=== PATIENT | male | born 1995 | race Two or more races ===

== ENCOUNTER 2020-04-14 20:11 | Emergency (ER) | payer SELFPAY ==
[2020-04-14] MEDS ORDERED: FLU VACC QS2020-21(6MOS UP)/PF 60 MCG/0.5 ML SYRINGE IM ONE (21:00)
--- NOTE | 2020-04-14 21:46 | EDM.PDOC ---
ED HPI GENERAL MEDICAL PROBLEM - General Chief Complaint: Chest Pain Stated Complaint: CHEST PAIN Time Seen by Provider: 04/14/20 20:25 Source of Information: Reports: Patient, RN Notes Reviewed History Limitations: Reports: No Limitations - History of Present Illness INITIAL COMMENTS - FREE TEXT/NARRATIVE: Patient is a 25-year-old male presenting to the emergency department with complaints of intermittent left-sided chest pain that began last evening. He describes it as a pinching sensation in his left chest wall. Symptoms are not present at this time. When he woke this morning, the pain was fairly constant, however it has improved throughout the day and now only occurs if he takes a very deep breath or uses his muscles to sit up. He also has some discomfort when bending over. Chest wall is not tender to palpation. He has been doing some housework, but nothing overly exertional. Denies any heavy lifting. He has no history of cardiac problems, however he does have a history of polycythemia as well as a "blood clot in his right lung". He is not sure what medication was used to treat this blood clot, however he states that he took it for 1 week. States he did have phlebotomy for his polycythemia in January. He denies any shortness of breath, diaphoresis, nausea, or vomiting associated with chest pain. Left Chest Pain Score (Numeric/FACES): 7 - Related Data Allergies Allergy/AdvReac Type Severity Reaction Status Date / Time No Known Allergies Allergy Verified 04/14/20 20:28 Home Meds: Home Meds diphenhydrAMINE [Benadryl] 50 mg PO ASDIRECTED PRN 04/14/20 [History] Past Medical History Hematologic History: Reports: Polycythemia Social & Family History - Tobacco Use Tobacco Use Status *Q: Former Tobacco User Used Tobacco, but Quit: Yes Month/Year Tobacco Last Used: 3 months - Caffeine Use Caffeine Use: Reports: Soda - Recreational Drug Use Recreational Drug Type: Reports: Marijuana/Hashish Recreational Drug Use Frequency: Weekly ED ROS GENERAL - Review of Systems Review Of Systems: See Below Constitutional: Reports: No Symptoms, Weight Gain. Denies: Fever, Chills Respiratory: Reports: No Symptoms. Denies: Shortness of Breath, Cough Cardiovascular: Reports: Chest Pain. Denies: Dyspnea on Exertion, Lightheadedness, Palpitations Endocrine: Reports: No Symptoms GI/Abdominal: Reports: No Symptoms : Reports: No Symptoms Musculoskeletal: Reports: No Symptoms Skin: Reports: No Symptoms Neurological: Reports: No Symptoms Psychiatric: Reports: No Symptoms Hematologic/Lymphatic: Reports: No Symptoms Immunologic: Reports: No Symptoms ED EXAM, GENERAL - Physical Exam Exam: See Below Exam Limited By: No Limitations General Appearance: Alert, WD/WN, No Apparent Distress Respiratory/Chest: No Respiratory Distress, Lungs Clear, Normal Breath Sounds, No Accessory Muscle Use, Chest Non-Tender Cardiovascular: Normal Peripheral Pulses, Regular Rate, Rhythm, No Edema, No Gallop, No JVD, No Murmur, No Rub GI/Abdominal: Normal Bowel Sounds, Soft, Non-Tender, No Organomegaly, No Distention, No Abnormal Bruit, No Mass Neurological: Alert, Oriented, CN II-XII Intact, Normal Cognition, Normal Gait, Normal Reflexes, No Motor/Sensory Deficits Psychiatric: Normal Affect, Normal Mood Skin Exam: Warm, Dry, Intact, Normal Color, No Rash #1 Interpretation EKG Date: 04/14/20 Time: 20:39 Rhythm: NSR Rate (Beats/Min): 81 [place]: Normal P-Wave: Present QRS: Normal ST-T: Elevated (probable normal early repolarization pattern.) QT: Normal Course - Vital Signs Last Recorded V/S: Last Vital Signs Temp 98.0 F 04/14/20 20:35 Pulse 83 04/14/20 20:35 Resp 20 04/14/20 20:35 BP 132/89 04/14/20 20:35 Pulse Ox 97 04/14/20 20:35 - Orders/Labs/Meds Orders: Active Orders 24 hr Category Date Time Status Chest 2V [CR] Stat Exams 04/14/20 20:29 Taken Labs: Laboratory Tests 04/14/20 04/14/20 04/14/20 Range/Units 20:43 20:43 20:43 WBC 9.15 H (4.23-9.07) K/mm3 RBC 5.27 (4.63-6.08) M/mm3 Hgb 14.8 (13.7-17.5) gm/dl Hct 45.6 (40.1-51.0) % MCV 86.5 (79.0-92.2) fl MCH 28.1 (25.7-32.2) pg MCHC 32.5 (32.2-35.5) g/dl RDW Std Deviation 44.4 H (35.1-43.9) fL Plt Count 316 (163-337) K/mm3 MPV 10.2 (9.4-12.3) fl Neutrophils % (Manual) 66 H (40-60) % Band Neutrophils % 0 (0-10) % Lymphocytes % (Manual) 27 (20-40) % Atypical Lymphs % 0 % Monocytes % (Manual) 3 (2-10) % Eosinophils % (Manual) 4 (0.8-7.0) % Basophils % (Manual) 0 L (0.2-1.2) Platelet Estimate Adequate RBC Morph Comment Normal PT 11.1 (9.7-12.0) SECONDS INR 1.04 APTT 30.8 (21.7-31.4) SECONDS D-Dimer, Quantitative < 0.19 L (0.19-0.50) mg/L Sodium 139 (136-145) mEq/L Potassium 3.7 (3.5-5.1) mEq/L Chloride 102 (98-107) mEq/L Carbon Dioxide 28 (21-32) mEq/L Anion Gap 12.7 (5-15) BUN 6 L (7-18) mg/dL Creatinine 0.8 (0.7-1.3) mg/dL Est Cr Clr Drug Dosing 162.69 mL/min Estimated GFR (MDRD) > 60 (>60) mL/min BUN/Creatinine Ratio 7.5 L (14-18) Glucose 101 (74-106) mg/dL Calcium 9.0 (8.5-10.1) mg/dL Magnesium 1.7 L (1.8-2.4) mg/dl Total Bilirubin 0.7 (0.2-1.0) mg/dL AST 22 (15-37) U/L ALT 52 (16-63) U/L Alkaline Phosphatase 88 (46-116) U/L Troponin I < 0.017 (0.00-0.056) ng/mL NT-Pro-B Natriuret Pep (0-125) pg/mL Total Protein 7.5 (6.4-8.2) g/dl Albumin 3.5 (3.4-5.0) g/dl Globulin 4.0 gm/dL Albumin/Globulin Ratio 0.9 L (1-2) 04/14/20 Range/Units 20:43 WBC (4.23-9.07) K/mm3 RBC (4.63-6.08) M/mm3 Hgb (13.7-17.5) gm/dl Hct (40.1-51.0) % MCV (79.0-92.2) fl MCH (25.7-32.2) pg MCHC (32.2-35.5) g/dl RDW Std Deviation (35.1-43.9) fL Plt Count (163-337) K/mm3 MPV (9.4-12.3) fl Neutrophils % (Manual) (40-60) % Band Neutrophils % (0-10) % Lymphocytes % (Manual) (20-40) % Atypical Lymphs % % Monocytes % (Manual) (2-10) % Eosinophils % (Manual) (0.8-7.0) % Basophils % (Manual) (0.2-1.2) Platelet Estimate RBC Morph Comment PT (9.7-12.0) SECONDS INR APTT (21.7-31.4) SECONDS D-Dimer, Quantitative (0.19-0.50) mg/L Sodium (136-145) mEq/L Potassium (3.5-5.1) mEq/L Chloride (98-107) mEq/L Carbon Dioxide (21-32) mEq/L Anion Gap (5-15) BUN (7-18) mg/dL Creatinine (0.7-1.3) mg/dL Est Cr Clr Drug Dosing mL/min Estimated GFR (MDRD) (>60) mL/min BUN/Creatinine Ratio (14-18) Glucose (74-106) mg/dL Calcium (8.5-10.1) mg/dL Magnesium (1.8-2.4) mg/dl Total Bilirubin (0.2-1.0) mg/dL AST (15-37) U/L ALT (16-63) U/L Alkaline Phosphatase (46-116) U/L Troponin I (0.00-0.056) ng/mL NT-Pro-B Natriuret Pep 36 (0-125) pg/mL Total Protein (6.4-8.2) g/dl Albumin (3.4-5.0) g/dl Globulin gm/dL Albumin/Globulin Ratio (1-2) Meds: Medications Discontinued Medications Generic Name Dose Route Start Last Admin Trade Name Freq PRN Reason Stop Dose Admin Influenza Virus Vaccine 1 each 04/14/20 20:33 Pharmacy To Dose - Influenza Vaccine IM 04/14/20 20:34 ONETIME ONE Influenza Virus Vaccine 60 mcg 04/14/20 21:00 Fluzone Quad [id number] Syringe IM 04/14/20 21:01 .ONCE ONE - Re-Assessments/Exams Free Text/Narrative Re-Assessment/Exam: 04/14/20 21:53 Patient's work-up was grossly unremarkable. EKG showed no acute ischemia. Chest x-ray was normal. D-dimer and troponin were both negative. Symptoms have been occurring intermittently since last evening, therefore if this was cardiac related, we would expect to see an elevation in troponin at this time. Discussed with patient that is likely experiencing musculoskeletal chest wall pain. Recommend routine Tylenol and ibuprofen as needed for discomfort. Heat over the area may also be beneficial. Discharge instructions as documented. Departure - Departure Time of Disposition: 21:54 Disposition: Home, Self-Care 01 Condition: Good Clinical Impression: Non-cardiac chest pain Instructions: Chest Wall Pain, [id number] Referrals: PCP,Not In Area [Primary Care Provider] - Forms: ED Department Discharge Additional Instructions: You were seen in the emergency department for intermittent left-sided chest pain since yesterday. Work-up included blood work, an EKG of your heart, and a chest x-ray. Results of work-up were found to be normal. You are not having a heart attack and you do not have blood clot in your lungs. As we discussed, the cause of your pain is likely musculoskeletal in nature. Recommend routine Tylenol and ibuprofen as needed for discomfort. Applying heat over the area may also be beneficial. If you should experience any new or worsening symptoms of concern, please not hesitate to return to the emergency department for reevaluation. Sepsis Event Note (ED) - Evaluation Sepsis Screening Result: No Definite Risk - Focused Exam Vital Signs: Vital Signs Temp Pulse Resp BP Pulse Ox 04/14/20 20:35 98.0 F 83 20 132/89 97 - My Orders Last 24 Hours: My Active Orders 04/14/20 20:29 Chest 2V [CR] Stat - Assessment/Plan Last 24 Hours: My Active Orders 04/14/20 20:29 Chest 2V [CR] Stat
--- NOTE | 2020-04-15 08:33 | CR ---
Chest: 2 views of the chest were obtained. Comparison: No prior chest x-ray is available. Findings: Heart and mediastinum: Within normal limits Chest and pleural: Within normal limits Bony structures: No abnormality is appreciated Impression: 1. Nothing acute is appreciated on 2 view chest x-ray. Diagnostic code #1
== END 2020-04-14 22:06 | disposition home or self-care (01) ==
LOC: JD.ED 20:11
DX: R07.89 Other chest pain (principal); Z87.891 Personal history of nicotine dependence
CPT/HCPCS: 36415; 71046; 71046-26; 80053; 83735; 83880; 84484; 85007; 85027; 85379; 85610; 85730; 93005; 93010; 99283; 99285-25